=== PATIENT | male | born 1965 | race Caucasian/White ===

== ENCOUNTER → 2017-05-29 07:55 | Outpatient (CLI) | payer OTHER, SELFPAY ==
[2017-05-29 09:50] LABS: AST(SGOT) 18 U/L (15-37); Alanine Aminotransfer ALT/SGPT 30 U/L (16-61); Albumin, Serum 3.6 g/dL (3.2-5.0); Alkaline Phosphatase 88 U/L (45-117); Bilirubin, Direct 0.12 mg/dL (0.00-0.30); Cholesterol 136 mg/dL (200); Globulin 3.6 g/dL (2.2-4.2); High Density Lipoprotein 29 mg/dL; Protein, Total 7.2 g/dL (6.4-8.2); Triglycerides 119 mg/dL; Very Low Density Lipoprotein 24 mg/dL (5-40)
== END ==
PROVIDERS: Family Provider Family Medicine; PCP Family Medicine; Visit Provider Internal Medicine Cardiovascular Disease
DX: E78.5 Hyperlipidemia, unspecified (principal); Z79.899 Other long term (current) drug therapy
CPT/HCPCS: 36415; 80061; 80076

== ENCOUNTER → 2018-04-02 11:15 | Outpatient (CLI) | payer OTHER, SELFPAY ==
[2017-07-29 14:51] VITALS: BMI 37.1
[2018-04-02 11:48] LABS: Absolute Lymphocyte Count 1.88 X10^3/ul (0.83-4.51); Absolute Neutrophil Count 2.9 X10^3/uL (2.0-7.7); Basophil# 0.02 X10^3/uL; Basophil% 0.4 % (0-1); Eosinophils% 1.9 % (0-5); Hematocrit 45.1 % (40-54); Hemoglobin 15.2 g/dl (13.0-16.5); Lymphocyte # 1.88 X10^3/ul (4.0); Lymphocyte % 35.1 % (19-41); Mean Corp Hgb Conc 33.7 g/gl (32-36); Mean Corpuscular Hgb 29.1 pg (27.0-32.0); Mean Corpuscular Volume 86.2 fL (80-94); Monocyte# 0.42 X10^3/uL; Monocyte% 7.9 % (0-10); Neutrophil # 2.92 X10^3/uL (2.7-7.7); Neutrophil % 54.5 % (47-70); POSITIVE COUNT NO; POSITIVE DIFFERENTIAL NO; POSITIVE MORPHOLOGY NO; Platelet Count 208 K/mm3 (150-450); RBC Distribution Width SD 40.9 fl (35.1-43.9); Red Blood Count 5.23 M/mm3 (4.6-6.2); White Blood Count 5.4 K/mm3 (4.4-11.0)
[2018-04-02 12:16] LABS: ALB/GLOB Ratio 1.1 RATIO (0.9-2.4); AST(SGOT) 25 U/L (15-37); Alanine Aminotransfer ALT/SGPT 34 U/L (16-61); Albumin, Serum 3.7 g/dL (3.2-5.0); Alkaline Phosphatase 93 U/L (45-117); Anion Gap 7 (5-15); BUN 18 mg/dL (7-18); BUN/Creat Ratio 16.7 RATIO (10-20); Bilirubin, Direct 0.13 mg/dL (0.00-0.30); Calcium,Total 8.5 mg/dL (8.5-10.1); Chloride 108 mmol/L (98-107); Cholesterol 150 mg/dL (200); Creatinine, Serum 1.08 mg/dL (0.70-1.30); EST Glomerular Filtration Rate 77 mL/min (>60); Est Glom Filt Rate - Afr Amer 93 mL/min (>60); Globulin 3.4 g/dL (2.2-4.2); Glucose 90 mg/dL (74-106); High Density Lipoprotein 27 mg/dL; Protein, Total 7.1 g/dL (6.4-8.2); Sodium Level 144 mmol/L (136-145); Triglycerides 143 mg/dL; Very Low Density Lipoprotein 29 mg/dL (5-40)
== END ==
PROVIDERS: Family Provider Family Medicine; PCP Family Medicine; Referring Provider Internal Medicine Cardiovascular Disease; Visit Provider Internal Medicine Cardiovascular Disease
DX: L40.0 Psoriasis vulgaris (principal); E78.5 Hyperlipidemia, unspecified; I10 Essential (primary) hypertension; I25.10 Atherosclerotic heart disease of native coronary artery without angina pectoris; I26.99 Other pulmonary embolism without acute cor pulmonale; T81.718A Complication of other artery following a procedure, not elsewhere classified, initial encounter; Z79.899 Other long term (current) drug therapy; Z95.1 Presence of aortocoronary bypass graft
CPT/HCPCS: 36415; 80053; 80061; 82248; 85025

== ENCOUNTER 2018-06-12 05:54 | Emergency (ER) | payer OTHER, SELFPAY ==
[2018-04-30 10:13] VITALS: BMI 37.5
[2018-06-12 05:55] VITALS: BP 141/72; PULSE 62; RESP 20; TEMP 36.4; O2SAT 95; BMI 37.8
[2018-06-12 05:57] VITALS: RESP 20
--- NOTE | 2018-06-12 06:02 | CT_ITS ---
STUDY: CT ABDOMEN AND PELVIS WITHOUT CONTRAST REASON FOR EXAM: Male, 52 years old. Right flank pain RADIATION DOSAGE (If Supplied By Facility): CTDIvol = ( 21.08 ) mGy, DLP = ( 1259 ) mGycm TECHNIQUE: Transaxial images were obtained from the dome of the diaphragm to the symphysis pubis without oral contrast, and without intravenous contrast. Sagittal and coronal images were reconstructed. Individualized dose optimization techniques were used for this CT. COMPARISON: 11/26/2012 FINDINGS: The visualized lung bases are unremarkable. The visualized portions of the heart are within normal limits. Median sternotomy wires. Normal liver. Multiple gallstones. Normal spleen. Normal pancreas. Normal bilateral adrenal glands. Normal right kidney. Normal left kidney. Normal visualized stomach. Normal small intestine. There are multiple colonic diverticula consistent with diverticulosis. The appendix is visualized and appears normal. Normal abdominal aorta. There is an IVC filter in place. Normal retroperitoneum. Normal urinary bladder. Prostatomegaly and prostate calcifications. Normal abdominal wall. Normal osseous structures. CT/Abdomen/Pelvis without Cont IMPRESSION: No evidence of acute intestinal pathology or acute obstructive uropathy. Multiple gallstones. Electronically Signed: Ole Mahmood MD at 7:03 EST Tel , Service support ,
--- NOTE | 2018-06-12 06:02 | ED.VIS.GEN ---
History of Present Illness Chief Complaint: Flank Pain Informant: Patient Narrative: Patient stated that he woke 1 hour ago from sleep with right-sided flank pain. It has been constant. Moderate in severity. Sharp and discomfort. Nonradiating. No injury. He does not feel musculoskeletal and feels deep inside. He is never had this before. No home treatment. No urinary symptoms. No history of frequent urinary tract infections. Positive nausea without vomiting. No history of kidney stones but thinks he might have one. Past Medical History - Allergies and Home Meds Allergies/Adverse Reactions: Allergies heparin Adverse Reaction (Severe, Verified 06/12/18 05:57) Induced thrombocytopenia Penicillins Adverse Reaction (Unknown, Verified 06/12/18 05:57) Unknown Primary Care Physician: Ole Alexandra MD [Primary Care Provider] - Prior records reviewed: Yes Past Medical History: - - Hypertension, hyperlipidemia, postoperative pulmonary embolism, coronary artery disease status post bypass, hypertension Surgical History: - - CABG, IVC filter, hernia, thymectomy, vasectomy Lives: Spouse/ Significant Other Smoking Status: Never smoker Alcohol: None Drugs: None Review of Systems General: Denies: Chills, Fever, Sweats Eyes: Denies: Visual changes - bilaterally, Diplopia ENT: Denies: Rhinorrhea, Sore throat Cardiovascular: Denies: Chest pain, Palpitations Respiratory: Denies: Dyspnea, Cough, Dyspnea on exertion Gastrointestinal: Reports: Nausea. Denies: Abdominal pain, Vomiting, Diarrhea, Melena, Hematochezia Genitourinary: Denies: Dysuria, Hematuria, Frequency Musculoskeletal: Reports: Back pain - Right flank . Denies: Extremity Pain Skin: Denies: Rash, Wounds Neurological: Denies: Headache, Weakness, Numbness Physical Exam Vital Signs/Narrative: Vital Signs Temp Pulse Resp BP Pulse Ox 06/12/18 05:57 20 H 06/12/18 05:55 97.6 F L 62 20 H 141/72 H 95 Inital Vital Signs reviewed: Yes General: Well nourished, Well developed, No Acute Distress Head: Normocephalic, Atraumatic Eyes: Perrl, EOMI ENT: Moist mucous membranes, No rhinorrhea Neck: Supple, Nontender Cardiovascular: Regular rate, Regular rhythm, No murmurs Respiratory: No distress, CTA bilaterally, Chest nontender Abdomen: Soft, Nontender, Nondistended, Normal bowel sounds Back: Nontender, Normal Inspection. Negative for: CVA tenderness, Spinal tenderness Extremities: Nontender, No edema Skin: Normal color, No rash Neurological: Alert, Oriented x3, Cranial nerves II-XII grossly intact, Normal Strength, Normal Sensation Psychological: Normal affect, Normal Mood Diagnostic/Tx/Re-eval - Medical Decision Making IV established patient given fluids, Zofran, Toradol, morphine. Lab work and CT flank obtained CBC is normal. Electrolytes were normal except a calcium of 8.3. CT shows gallstones. Pain. No kidney stone noted. Urinalysis does show blood without infection. At this time on reevaluation the patient is pain-free resting comfortably. He may have passed a kidney stone. He has no pain at all over his gallbladder. His pain is much lower in his back. I do not think this is gallstone related however it is possible. He will follow-up with his family doctor and will be given a referral to a general surgeon. I do not think he needs to be admitted. I do not think he is a acute cholecystitis or intractable biliary colic. Is more likely to be a passed kidney stone. ED Disposition - Plan for ED Patient: Disposition: Home or Assisted Living Instructions: ED Stone Renal Passed, What are Gallstones? Prescriptions: Hydrocodone Bitart/Apap 5-325 [[place] 5MG-325MG] 1 - 2 tab PO Q4H PRN PRN 2 Days #10 tab PRN Reason: Pain Ondansetron [Zofran Odt] 4 mg PO Q8H PRN PRN #10 tab PRN Reason: Nausea Referrals: Ole Alexandra MD [Primary Care Provider] - Curtis Kate MD [STAFF PHYSICIAN] -
[2018-06-12] MEDS: Ondansetron 4 MG/2 ML Vial IV (06:06)
[2018-06-12] MEDS: 0.9% Normal Saline 1,000 ML 250 ML IV (06:06)
[2018-06-12] MEDS: Ketorolac 30 MG/ML Syringe IV (06:07)
[2018-06-12] MEDS: Morphine 4 MG/ML Syringe IV (06:09)
[2018-06-12 06:18] LABS: Absolute Lymphocyte Count 2.82 X10^3/ul (0.83-4.51); Absolute Neutrophil Count 4.9 X10^3/uL (2.0-7.7); Basophil# 0.04 X10^3/uL; Basophil% 0.5 % (0-1); Eosinophil# 0.19 X10^3/uL; Eosinophils% 2.2 % (0-5); Hematocrit 46.4 % (40-54); Hemoglobin 15.3 g/dl (13.0-16.5); Lymphocyte # 2.82 X10^3/ul (4.0); Lymphocyte % 32.3 % (19-41); Mean Corpuscular Hgb 28.8 pg (27.0-32.0); Mean Corpuscular Volume 87.4 fL (80-94); Mean Platelet Vol. 9.5 fl (6.2-12.0); Monocyte# 0.76 X10^3/uL; Monocyte% 8.7 % (0-10); Neutrophil # 4.89 X10^3/uL (2.7-7.7); Neutrophil % 56.1 % (47-70); Platelet Count 177 K/mm3 (150-450); RBC Distribution Width CV 12.9 % (11.6-14.6); RBC Distribution Width SD 41.2 fl (35.1-43.9); Red Blood Count 5.31 M/mm3 (4.6-6.2); White Blood Count 8.7 K/mm3 (4.4-11.0)
[2018-06-12 06:19] LABS: POSITIVE COUNT NO; POSITIVE DIFFERENTIAL NO; POSITIVE MORPHOLOGY NO
[2018-06-12 06:24] LABS: Anion Gap 8 (5-15); BUN 12 mg/dL (7-18); BUN/Creat Ratio 10.3 RATIO (10-20); Calcium,Total 8.3 mg/dL (8.5-10.1); Chloride 107 mmol/L (98-107); Creatinine, Serum 1.17 mg/dL (0.70-1.30); EST Glomerular Filtration Rate 70 mL/min (>60); Est Glom Filt Rate - Afr Amer 84 mL/min (>60); Estimated Creatinine Clearance 77.12 ml/min; Glucose 145 mg/dL (74-106); Potassium 3.9 mmol/L (3.5-5.1); Sodium Level 142 mmol/L (136-145)
[2018-06-12 06:54] LABS: White Blood Cells 0 SEEN /hpf (0-5)
[2018-06-12 06:58] LABS: Color, Urine Yellow (Yellow); Glucose, Dipstick Normal (Normal); Ketone-Dipstick 5 mg/dl (Negative); Leukocyte Esterase-Dipstick Negative /ul (Negative); Nitrite-Dipstick Negative (Negative); Occult Blood-Urine 250 /ul (Negative); Protein-Dipstick 30 mg/dl (Negative); Urine Clarity Sl. Cloudy (Clear); Urine Urobilinogen 1 mg/dl (Normal)
[2018-06-12 07:01] LABS: Urine Bilirubin Dipstick 1 mg/dL (Negative)
[2018-06-12 07:03] LABS: Bacteria RARE /hpf (None Seen); Mucous, Urine 2+ /hpf (<or=2+); Red Blood Cells-Urine 0-5 SEEN /hpf (0-5)
[2018-06-12 07:04] LABS: Squamous Epithelial Cells - UA 0-5 SEEN /hpf (0-5)
[2018-06-12 07:24] VITALS: PULSE 66; RESP 17; TEMP 36.7; O2SAT 97
== END 2018-06-12 07:26 | disposition home or self-care (01) ==
PROVIDERS: Emergency Provider Emergency Medicine; Family Provider Family Medicine; PCP Family Medicine
DX: R10.9 Unspecified abdominal pain (principal); I10 Essential (primary) hypertension; E78.5 Hyperlipidemia, unspecified; I25.10 Atherosclerotic heart disease of native coronary artery without angina pectoris; Z86.711 Personal history of pulmonary embolism; Z95.1 Presence of aortocoronary bypass graft; Z79.82 Long term (current) use of aspirin; Z79.899 Other long term (current) drug therapy
CPT/HCPCS: 74176; 80048; 81001; 85025; 96361; 96374; 96375; 99283; J7030; A4216; J2405

== ENCOUNTER → 2018-10-28 | Outpatient (CLI) | payer OTHER, SELFPAY ==
[2018-10-08 11:44] VITALS: BMI 37.8
[2018-10-28 09:19] LABS: AST(SGOT) 23 U/L (15-37); Alanine Aminotransfer ALT/SGPT 36 U/L (16-61); Albumin, Serum 3.5 g/dL (3.2-5.0); Alkaline Phosphatase 73 U/L (45-117); Cholesterol 120 mg/dL (200); Globulin 3.4 g/dL (2.2-4.2); High Density Lipoprotein 31 mg/dL; Protein, Total 6.9 g/dL (6.4-8.2); Triglycerides 104 mg/dL; Very Low Density Lipoprotein 21 mg/dL (5-40)
== END | disposition home or self-care (01) ==
LOC: LAB 07:45
PROVIDERS: Family Provider Family Medicine; PCP Family Medicine; Referring Provider Internal Medicine Cardiovascular Disease; Visit Provider Internal Medicine Cardiovascular Disease
DX: E78.5 Hyperlipidemia, unspecified (principal)
CPT/HCPCS: 36415; 80061; 80076

== ENCOUNTER → 2019-05-07 | Outpatient (CLI) | payer OTHER, SELFPAY ==
[2019-04-29 10:55] VITALS: BMI 38.2
[2019-05-07 08:43] LABS: Absolute Lymphocyte Count 2.16 X10^3/uL (0.83-4.51); Basophil# 0.04 X10^3/uL; Basophil% 0.7 % (0-1); Eosinophil# 0.25 X10^3/uL; Eosinophils% 4.1 % (0-5); Hemoglobin 14.8 g/dL (13.0-16.5); Lymphocyte # 2.16 X10^3/ul (4.0); Lymphocyte % 35.4 % (19-41); Mean Corp Hgb Conc 32.9 g/dL (32-36); Mean Corpuscular Hgb 28.5 pg (27.0-32.0); Mean Corpuscular Volume 86.5 fL (80-94); Mean Platelet Vol. 9.8 fl (6.2-12.0); Monocyte# 0.61 X10^3/uL; NRBC Flagged by Analyzer 0 % (0-5); Neutrophil # 3.02 X10^3/uL (2.7-7.7); Neutrophil % 49.5 % (47-70); Platelet Count 205 K/mm3 (150-450); RBC Distribution Width CV 12.4 % (11.6-14.6); RBC Distribution Width SD 39.1 fl (35.1-43.9); White Blood Count 6.1 K/mm3 (4.4-11.0)
[2019-05-07 09:09] LABS: ALB/GLOB Ratio 0.9 RATIO (0.9-2.4); AST(SGOT) 17 U/L (15-37); Alanine Aminotransfer ALT/SGPT 32 U/L (16-61); Albumin, Serum 3.3 g/dL (3.2-5.0); Alkaline Phosphatase 88 U/L (45-117); Anion Gap 2 (5-15); BUN 12 mg/dL (7-18); BUN/Creat Ratio 11.9 RATIO (10-20); Bilirubin, Direct 0.12 mg/dL (0.00-0.30); Calcium,Total 8.9 mg/dL (8.5-10.1); Chloride 106 mmol/L (98-107); Cholesterol 136 mg/dL (200); Creatinine, Serum 1.01 mg/dL (0.70-1.30); EST Glomerular Filtration Rate 82 mL/min (>60); Est Glom Filt Rate - Afr Amer 100 mL/min (>60); Globulin 3.6 g/dL (2.2-4.2); Glucose 124 mg/dL (74-106); High Density Lipoprotein 26 mg/dL; Potassium 4.2 mmol/L (3.5-5.1); Protein, Total 6.9 g/dL (6.4-8.2); Sodium Level 140 mmol/L (136-145); Triglycerides 151 mg/dL; Very Low Density Lipoprotein 30 mg/dL (5-40)
== END | disposition home or self-care (01) ==
LOC: LAB 07:54
PROVIDERS: PCP Family Medicine; Referring Provider Internal Medicine Cardiovascular Disease; Visit Provider Internal Medicine Cardiovascular Disease
DX: E78.5 Hyperlipidemia, unspecified (principal); L40.0 Psoriasis vulgaris; L82.1 Other seborrheic keratosis
CPT/HCPCS: 36415; 80053; 80061; 82248; 85025

== ENCOUNTER → 2019-11-18 | Outpatient (CLI) | payer OTHER, SELFPAY ==
[2019-11-09 10:27] VITALS: BMI 36.8
--- NOTE | 2019-11-18 09:22 | STRESSREP ---
Stress Test Report Date: 11-18-2019 Procedure: Exercise tolerance test/imaging study Indications: Shortness of breath/dyspnea on exertion; CAD status post CABG Consent: Per the patient Procedure: The patient exercised on a Shaka protocol for 9 minutes completing Stage III achieving a peak heart rate of 148 bpm (88 % predicted maximal heart rate) with a peak blood pressure 178/70 mmHg and a peak MET capacity of 10 METs. The baseline ECG demonstrated normal sinus rhythm. The peak exercise ECG demonstrated [id number] ST segment variability with approximately 0.5 to 1.[address] segment depression in leads II, III, aVF, and V4 through V6 with gradual resolution towards baseline in recovery. There was a rare PAC during exercise and a rare PVC during recovery. The functional capacity was considered good. There was no complaint of chest discomfort during exercise or recovery. The examination was discontinued secondary to dyspnea. Impression: 1. Technically adequate (percent predicted maximal heart rate greater than 85%) exercise tolerance test 2. Peak exercise ECG with [id number] ST segment variability with approximately 0.5 to 1.[address] segment depression in leads II, III, aVF, and V4 through V6 with gradual resolution towards baseline in recovery 3. There was a rare PAC during exercise and a rare PVC during recovery 4. Nuclear images pending Myocardial perfusion imaging study: Technique: The patient was injected with 14.6 mCi of technetium 99m Cardiolite and subsequently rest SPECT Cardiolite nuclear imaging was obtained in the horizontal long, vertical long, and short axis views. The patient exercised on a Shaka protocol for 9 minutes completing Stage III achieving a peak heart rate of 148 bpm (88 % predicted maximal heart rate) with a peak blood pressure 178/70 mmHg and a peak MET capacity of 10 METs. The patient was injected with 33.5 mCi of technetium 99m Cardiolite and subsequently stress SPECT Cardiolite nuclear imaging was obtained in the horizontal long, vertical long, and short axis views. A gated Cardiolite study at peak stress was obtained. Interpretation: Rest and stress SPECT Cardiolite nuclear imaging status post realignment, normalization, and attenuation correction, demonstrates at rest of relative uniform tracer uptake status post stress a small area of diminished tracer uptake in the distal anterior segments. There is end systolic thickening and brightening. The gated Cardiolite study demonstrates myocardial thickening and inward wall motion. The reported LVEF is 66 %. Impression: 1. Rest and stress SPECT Cardiolite nuclear imaging demonstrate demonstrate myocardial perfusion changes appearing compatible with an area of stress-induced myocardial ischemia involving portions of the distal anterior segments, however, an element of shifting soft tissue attenuation/artifact cannot necessarily be excluded. 2. The gated Cardiolite study reports an LVEF of 66 %. This note was generated with [employer]stream[employer] software. It may contain incorrect words, spelling, and punctuation that were not noted in checking the note before signing.
== END | disposition home or self-care (01) ==
LOC: CVS 06:16
PROVIDERS: PCP Family Medicine; Referring Provider Physician Assistant Medical; Visit Provider Physician Assistant Medical
DX: I25.10 Atherosclerotic heart disease of native coronary artery without angina pectoris (principal); I10 Essential (primary) hypertension; E78.5 Hyperlipidemia, unspecified
CPT/HCPCS: 78452; 93017; A9500; A4216

== ENCOUNTER 2019-12-01 08:54 | Day surgery (SDC) | payer OTHER, SELFPAY ==
[2019-11-09 10:27] VITALS: BMI 36.8
[2019-11-23 08:31] LABS: Absolute Lymphocyte Count 1.41 X10^3/uL (0.83-4.51); Absolute Neutrophil Count 2.7 X10^3/uL (2.0-7.7); Basophil# 0.03 X10^3/uL; Basophil% 0.6 % (0-1); Eosinophil# 0.12 X10^3/uL; Eosinophils% 2.5 % (0-5); Hematocrit 43.6 % (40-54); Hemoglobin 14.1 g/dL (13.0-16.5); Lymphocyte # 1.41 X10^3/ul (4.0); Lymphocyte % 29.5 % (19-41); Mean Corp Hgb Conc 32.3 g/dL (32-36); Mean Corpuscular Hgb 28.1 pg (27.0-32.0); Mean Corpuscular Volume 86.9 fL (80-94); Mean Platelet Vol. 10.1 fl (6.2-12.0); Monocyte# 0.54 X10^3/uL; Monocyte% 11.3 % (0-10); NRBC Flagged by Analyzer 0 % (0-5); Neutrophil # 2.67 X10^3/uL (2.7-7.7); Neutrophil % 55.9 % (47-70); Platelet Count 200 K/mm3 (150-450); RBC Distribution Width CV 12.8 % (11.6-14.6); RBC Distribution Width SD 40.2 fl (35.1-43.9); Red Blood Count 5.02 M/mm3 (4.6-6.2); White Blood Count 4.8 K/mm3 (4.4-11.0)
[2019-11-23 08:52] LABS: Anion Gap 6 (5-15); BUN 14 mg/dL (7-18); BUN/Creat Ratio 14.8 RATIO (10-20); Calcium,Total 8.4 mg/dL (8.5-10.1); Chloride 106 mmol/L (98-107); Creatinine, Serum 0.95 mg/dL (0.70-1.30); EST Glomerular Filtration Rate 88 mL/min (>60); Est Glom Filt Rate - Afr Amer 107 mL/min (>60); Glucose 117 mg/dL (74-106); Potassium 4.1 mmol/L (3.5-5.1); Prothrombin Time (Protime)PT. 12.7 SECONDS (11.7-14.9); Sodium Level 140 mmol/L (136-145)
[2019-11-23 08:59] LABS: AST(SGOT) 19 U/L (15-37); Alanine Aminotransfer ALT/SGPT 29 U/L (16-61); Albumin, Serum 3.5 g/dL (3.2-5.0); Alkaline Phosphatase 74 U/L (45-117); Bilirubin, Direct 0.13 mg/dL (0.00-0.30); Cholesterol 123 mg/dL (200); Globulin 3.5 g/dL (2.2-4.2); High Density Lipoprotein 26 mg/dL; Partial Thromboplast Time 24.4 Seconds (24.1-36.2); Triglycerides 102 mg/dL; Very Low Density Lipoprotein 20 mg/dL (5-40)
--- NOTE | 2019-11-24 07:59 | RAD_ITS ---
STUDY: X-RAY CHEST REASON FOR EXAM: Male, 54 years old. Abnormal stress test. TECHNIQUE: Frontal and lateral views of the chest COMPARISON: 12/06/14 FINDINGS: The lungs are clear. There are no pleural effusions. There is no pneumothorax. The heart is normal in size. Again noted are sternotomy wires. The visualized osseous structures are within normal limits. RAD/Chest PA and Lateral IMPRESSION: No acute thoracic pathology. Electronically Signed: Brooks Starr, at 17:02 EDT Tel , Service support ,
[2019-11-30 08:55] VITALS: BMI 36.8
--- NOTE | 2019-11-30 18:38 | PCM.HP.BLA ---
Problem List (1) Abnormal stress test Status: Acute (2) Atherosclerotic heart disease of [place] coronary artery without angina pectoris Status: Chronic Qualifiers: Comment: CABG x2- SANDOVAL to LAD, OPHELIA to RCA 01/18/10 (3) Aortocoronary bypass status Status: Chronic Comment: CABG x2- SANDOVAL to LAD, OPHELIA to RCA 01/18/10 (4) Hyperlipidemia Status: Chronic Qualifiers: (5) Essential hypertension Status: Chronic History and Physical Date of Admission: 12/01/19 [facility] [address] [place] [address] OFFICE VISIT Date of Service: 11/09/19 MR#: [id number] Acct: [id number] Name: AMADO ROQUE Rep #: [id number] : 1965 Provider: PRITI Aguirre Age/Sex: 54/M Location: [facility] [place] Status: Signed HPI HPI History of Present Illness Details: This is a 54-year-old gentleman that presents here today for a cardiovascular follow-up. He has a history of coronary artery disease with bypass surgery in 2009. He had a SANDOVAL to LAD, OPHELIA to RCA. He also has a history of PE, hypertension and hyperlipidemia. From a cardiac standpoint, patient is doing well. He does not have any chest discomfort/heaviness/tightness. His exercise tolerance is stable for his age. He does not have any worsening symptoms of shortness of breath. He denies any PND. He does not have any orthopnea. He does not have any symptoms of congestive heart failure. He does not have any palpitations that he is aware of. He does not have any lightheadedness or dizziness. He does not have any near-syncope or syncope. He does not have any lower extremity edema. He does not have any symptoms of claudication. He has lost weight since he has been working from home. He will be returning to work next week. Intake Vital Signs 11/09/19 Height 5 ft 10 in 11/09/19 Weight: 257 lb 11/09/19 BMI 36.8 11/09/19 BP 123/74 H 11/09/19 Blood Pressure Location Lt brachial 11/09/19 Position Sitting 11/09/19 Respiration 18 11/09/19 Pulse 60 11/09/19 Pulse Source Monitor 11/09/19 Pulse Oximetry (%) 97 Intake Visit Reasons: 6 M FU Shopping Investigator Required: No Is patient in pain?: No Allergies heparin Adverse Reaction (Severe, Verified 11/09/19 10:27) Induced thrombocytopenia Penicillins Adverse Reaction (Unknown, Verified 11/09/19 10:27) Unknown Medications aspirin 325 mg tablet,delayed release 325 mg PO QDAY 06/17/17 [History Confirmed 11/09/19] bupropion HCl 150 mg tablet,12 hr sustained-release 150 mg PO QDAY 06/17/17 [History Confirmed 11/09/19] fluticasone propionate 50 mcg/actuation nasal spray,suspension 1 spray INTRANASAL QDAY PRN 06/17/17 [History Confirmed 11/09/19] loratadine 10 mg tablet 10 mg PO QDAY 06/17/17 [History Confirmed 11/09/19] sulfasalazine 500 mg tablet 500 mg PO TID tab 06/17/17 [History Confirmed 11/09/19] nitroglycerin 0.4 mg sublingual tablet 0.4 mg SUBLINGUAL Q5M PRN #25 tab 08/20/18 [Rx Confirmed 11/09/19] ezetimibe 10 mg tablet 10 mg PO QDAY #90 tab 01/26/19 [Rx Confirmed 11/09/19] rosuvastatin 40 mg tablet 40 mg PO QDAY #90 tab 01/26/19 [Rx Confirmed 11/09/19] calcipotriene-betamethasone 0.005 %-0.064 % topical ointment 1 applic TOPICAL DAILY PRN 04/29/19 [History Confirmed 11/09/19] lisinopril 2.5 mg tablet 2.5 mg PO QDAY #90 tab 08/24/19 [Rx Confirmed 11/09/19] metoprolol succinate 25 mg tablet,extended release 24 hr 25 mg PO DAILY #90 tab 09/07/19 [Rx Confirmed 11/09/19] [facility] Medical History Essential hypertension (Chronic) Hyperlipidemia (Chronic) Pulmonary embolism and infarction, iatrogenic (Acute) Long-term use of high-risk medication (Acute) Atherosclerotic heart disease of [place] coronary artery without angina pectoris (Chronic) GERD (gastroesophageal reflux disease) (Acute) History of DVT (deep vein thrombosis) (Acute) Psoriasis (Acute) MAC (obstructive sleep apnea) (Chronic) Hypertension (Inactive) Surgical History Aortocoronary bypass status (Chronic ~01/18/10) History of vasectomy (Chronic) History of hernia repair (Resolved) History of thymectomy (Resolved) Social History (Updated 11/09/19 @ 11:00 by PRITI Rahman) Smoking Status: Never smoker alcohol intake: never ROS Const Const: Negative for fatigue, weakness, fever(s) or headache(s) Eyes Eyes: Negative for blind spots, loss of peripheral vision or transient loss of vision ENT ENT: Negative for headache(s), dizziness, tinnitus or Nosebleed/epistaxis Cardio Chest Pain: No Palpitations: No Edema: None Muscle aches with walking: None Resp Respiratory: Negative for SOB with activity, SOB at rest, SOB orthopnea\SOB lying down or Cough GI GI: Negative nausea, vomiting, heartburn or vomiting blood/hematemesis : Negative for hematuria Musc Musc: Negative for muscle aches/ myalgia Neuro Neuro: Negative for dizziness, lightheadedness, near syncope, syncope, orthostatic symptoms, headache(s) or weakness Andre Hematologic/Lymphatic: Negative for easy bleeding Endo Endo: Negative for fatigue Cardiology Exam Const Appearance: cooperative, healthy appearing, comfortable, no acute distress, well developed and well groomed Nutritional Appearance: average body habitus and well nourished Orientation: alert, awake and oriented x3 Head Head: normal to inspection and normocephalic Ears: hearing grossly normal bilaterally Nose: external nose normal Mouth: oral mucosae normal Teeth and gingiva: fair dentition Eyes Eyelids: eyelids normal Conjunctivae: conjunctivae normal Pupils: PERRL EOM: EOM intact bilaterally Neck Neck: normal visual inspection and full ROM Carotids: normal carotid upstroke Chest Chest inspection: normal inspection of the chest, symmetric chest movement and normal respiratory effort Auscultation: Bilateral: Clear to Auscultation Cardio Palpation: normal PMI Rate: regular rate Rhythm: regular rhythm Heart sounds: S1 normal and S2 normal GI GI: normal to inspection, soft and bowel sounds present Neuro General: alert, awake, oriented x3, gait normal, moves all extremities, no focal sensory deficit and no focal motor deficits Skin Skin: no rashes or lesions noted Extremities Pulses: Normal: Right Radial Pulse, Left Radial Pulse Lower Extremity Edema: None: Bilateral Psych Psychological: normal affect Assessment & Plan 1. Atherosclerosis of [place] coronary artery of [place] heart without angina pectoris I25.10 CABG x2- SANDOVAL to LAD, OPHELIA to RCA 01/18/10 Plan Stable, from a cardiac standpoint patient does not have any symptoms of angina. We recommend that they continue with current aggressive medical management and risk factor modification. It has been greater than 5 years since he had a stress test, would like to obtain to evaluate stability of his CAD Orders Orders: Nuclear Stress Test - Treadmil Today 2. Essential hypertension I10 Plan Blood pressure is well controlled on current medications, we do not recommend any changes at this time. Orders Orders: Nuclear Stress Test - Treadmil Today 3. Hyperlipidemia, unspecified hyperlipidemia type E78.5 Plan Recent lipids were reviewed. He is due to have these checked again in the near future. They are controlled on his current high intensity statin. Will not make any adjustments. Orders Orders: Nuclear Stress Test - Treadmil Today Plan Detail Follow Up 9 Months (PFM) Coding Level of Care Code Off vis,est,level 3 Diagnoses Atherosclerosis of [place] coronary artery of [place] heart without angina pectoris I25.10 ??[place] vs. transplanted heart: [place] heart Essential hypertension I10 Hyperlipidemia, unspecified hyperlipidemia type E78.5 ??Hyperlipidemia type: unspecified Coding Level of Care Code Off vis,est,level 3 Diagnoses Atherosclerosis of [place] coronary artery of [place] heart without angina pectoris I25.10 ??[place] vs. transplanted heart: [place] heart Essential hypertension I10 Hyperlipidemia, unspecified hyperlipidemia type E78.5 ??Hyperlipidemia type: unspecified Supplemental Info Supplemental Information DATE OF SERVICE: 11/16/2014 EXERCISE TOLERANCE TEST: The patient exercised on a Shaka protocol for 12 minutes completing stage 4 achieving a peak heart rate of 164 beats per minute (95% predicted maximum heart rate) and a peak blood pressure of 170/64 mmHg and a peak MET capacity of 13 METS. The baseline ECG demonstrated normal sinus rhythm. The peak exercise ECG demonstrated [id number] ST-segment variability with approximately 0.5 mm of downsloping/horizontal ST-segment depression in leads II, III, aVF, and approximately 0.5 to 1.[address]-segment depression in leads V3 through V6 with resolution towards baseline beginning less than 1 minute in recovery. There were no cardiac dysrhythmias pretest, during exercise, or recovery. The functional capacity was considered excellent. The patient had no complaint of chest discomfort during exercise or recovery. The examination was discontinued secondary to dyspnea. IMPRESSION: 1. Technically adequate (percent predicted maximum heart rate greater than 85%) exercise tolerance test. 2. Peak exercise ECG with [id number] ST-segment variability with approximately 0.5 mm of downsloping/horizontal ST-segment depression in leads II, III, aVF, and approximately 0.5 to 1.[address]-segment depression in leads V3 through V6 with resolution towards baseline beginning less than 1 minute in recovery. 3. Nuclear images pending. MYOCARDIAL PERFUSION IMAGING STUDY: TECHNIQUE: The patient was injected with 14.7 mCi of Tc99m Cardiolite and subsequently rest SPECT Cardiolite nuclear imaging was obtained in the horizontal long, vertical long and short axes views. The patient exercised on a Shaka protocol for 12 minutes achieving a peak heart rate of 164 beats per minute (95% predicted maximum heart rate) and a peak blood pressure of 170/64 mmHg and a peak MET capacity of 13 METS. The patient was injected with 44.1 mCi of Tc99m Cardiolite and subsequently stress SPECT Cardiolite nuclear imaging was obtained in the horizontal long, vertical long and short axes views. A gated Cardiolite study at peak stress was obtained. INTERPRETATION: Rest and stress SPECT Cardiolite nuclear imaging, status post realignment and normalization, demonstrate at rest areas of extracardiac/hepatic and gastrointestinal tracer uptake near the inferior segments. Both images demonstrate areas of diminished tracer uptake in portions of the basal inferoseptal and basal inferior segments, which appear to be more prominent at rest as opposed to stress. At rest, this proceeds towards the mid inferior segment. There was also a small area of subtle decreased tracer uptake, both at rest and stress, in portions of the basal anterior segment. There are similar type changes on the resting and stress polar map images. There appears to be end systolic thickening and brightening. The gated Cardiolite study demonstrates myocardial thickening and inward wall motion. The reported LVEF is 64%. The aforementioned findings appear compatible with shifting soft tissue attenuation/artifact and/or gastrointestinal tracer uptake/detraction involving portions of the inferior segments being more prominent at rest as opposed to stress as well as potentially an area of soft tissue attenuation/artifact involving a small area of the basal anterior segment, although a small area of previous myocardial injury/infarction cannot necessarily be excluded. There are no myocardial perfusion changes considered diagnostic for associated stress-induced myocardial ischemia. IMPRESSION: 1. Rest and stress SPECT Cardiolite nuclear imaging, status post realignment and normalization, demonstrate myocardial perfusion changes involving portions of the basal inferoseptal, basal inferior segment extending to the mid inferior segments at rest, which appear to improve and/or normalize following stress being compatible with an element of shifting soft tissue attenuation/artifact and/or gastrointestinal tracer uptake/detraction as well as demonstrating a small area of subtle decreased tracer uptake in the basal anterior segments potentially compatible with soft tissue attenuation/artifact although an area of previous myocardial injury/infarction involving a small area of the basal anterior segments cannot necessarily be excluded. 2. There are no myocardial perfusion changes considered diagnostic for stress-induced myocardial ischemia. 3. The gated Cardiolite study reports an LVEF of 64%. Labs LDL Cholesterol 80 mg/dL (0-130) 05/07/19 HDL Cholesterol 26 mg/dL (40-) L 05/07/19 Triglycerides 151 mg/dL (-199) 05/07/19 VLDL Cholesterol 30 mg/dL (5-40) 05/07/19 11/09/19 1100 <Electronically signed by Eve MARCOS> Date Eve MARCOS Cosigner Signature: Date (if applicable) CC: Dr. Ole Alexandra MD ~ I have examined the patient the following changes are noted: The patient has subsequently undergone additional evaluation with an exercise tolerance test/imaging study. The results are as noted. Stress Test Report Date: 11-18-2019 Procedure: Exercise tolerance test/imaging study Indications: Shortness of breath/dyspnea on exertion; CAD status post CABG Consent: Per the patient Procedure: The patient exercised on a Shaka protocol for 9 minutes completing Stage III achieving a peak heart rate of 148 bpm (88 % predicted maximal heart rate) with a peak blood pressure 178/70 mmHg and a peak MET capacity of 10 METs. The baseline ECG demonstrated normal sinus rhythm. The peak exercise ECG demonstrated [id number] ST segment variability with approximately 0.5 to 1.[address] segment depression in leads II, III, aVF, and V4 through V6 with gradual resolution towards baseline in recovery. There was a rare PAC during exercise and a rare PVC during recovery. The functional capacity was considered good. There was no complaint of chest discomfort during exercise or recovery. The examination was discontinued secondary to dyspnea. Impression: 1. Technically adequate (percent predicted maximal heart rate greater than 85%) exercise tolerance test 2. Peak exercise ECG with [id number] ST segment variability with approximately 0.5 to 1.[address] segment depression in leads II, III, aVF, and V4 through V6 with gradual resolution towards baseline in recovery 3. There was a rare PAC during exercise and a rare PVC during recovery 4. Nuclear images pending Myocardial perfusion imaging study: Technique: The patient was injected with 14.6 mCi of technetium 99m Cardiolite and subsequently rest SPECT Cardiolite nuclear imaging was obtained in the horizontal long, vertical long, and short axis views. The patient exercised on a Shaka protocol for 9 minutes completing Stage III achieving a peak heart rate of 148 bpm (88 % predicted maximal heart rate) with a peak blood pressure 178/70 mmHg and a peak MET capacity of 10 METs. The patient was injected with 33.5 mCi of technetium 99m Cardiolite and subsequently stress SPECT Cardiolite nuclear imaging was obtained in the horizontal long, vertical long, and short axis views. A gated Cardiolite study at peak stress was obtained. Interpretation: Rest and stress SPECT Cardiolite nuclear imaging status post realignment, normalization, and attenuation correction, demonstrates at rest of relative uniform tracer uptake status post stress a small area of diminished tracer uptake in the distal anterior segments. There is end systolic thickening and brightening. The gated Cardiolite study demonstrates myocardial thickening and inward wall motion. The reported LVEF is 66 %. Impression: 1. Rest and stress SPECT Cardiolite nuclear imaging demonstrate demonstrate myocardial perfusion changes appearing compatible with an area of stress-induced myocardial ischemia involving portions of the distal anterior segments, however, an element of shifting soft tissue attenuation/artifact cannot necessarily be excluded. 2. The gated Cardiolite study reports an LVEF of 66 %. This note was generated with [employer] dictation software. It may contain incorrect words, spelling, and punctuation that were not noted in checking the note before signing. 11/18/19932 <Electronically signed by Alfred Felipe MD> Date Alfred Felipe MD CC: PRITI Aguirre; Dr. 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 It was recommended the patient be considered for further evaluation with diagnostic cardiac catheterization. The procedure and risks have been discussed with the patient. He was agreeable to this approach. Procedure Criteria Procedure Type: Elective COVID Risk Discussion: The surgeon/proceduralist and patient have discussed in detail the risk of exposure to and/or potential harm posed by the COVID-19 virus with having a surgery/procedure at this time versus the risk of delaying the surgery/procedure. It is not possible to know either the risk of delaying the surgery or procedure or chance of getting an infection with perfect accuracy, but a joint decision was made between the patient and the surgeon/proceduralist to proceed at this time with the scheduled surgery/procedure as indicated on the consent form.
--- NOTE | 2019-12-02 00:32 | CL.D_ITS ---
Patient Name: AMADO ROQUE Study Date: 12/01/2019 Performing: Alfred Felipe MD Ht: 70 inches 178 cm : 1965 Wt: 258.3 lbs 117 kg Age: 54 Gender: male BSA: 2.33 PROCEDURE(S) PERFORMED [id number]/COR/LV/CABG CLINICAL PROFILE AND INDICATIONS Indications: Suspected CAD Heart Failure: None Stress/Imaging Date: 11/18/2019Stress Test with SPECT MPI: Positive Angina Classification Anginal Classification w/in 2 Weeks: Anginal Equivalent Dyspnea CAD Presentations: Other: dyspnea on exertion CONCLUSIONS Elevated Left Ventricular End Diastolic Pressure Normal LV size, wall motion,and systolic function LVEF: by LV gram 55 % [place] Multivessel CAD SANDOVAL to LAD: patent OPHELIA to RCA: patent RECOMMENDATIONS Risk factor modification Medical therapy DESCRIPTION OF PROCEDURE The patient arrived to the procedure lab. The risks and benefits of the procedure as well as a full d escription of our services here and current unavailability of surgical backup were fully explained to the patient and/or their significant other prior to the catheterization. The Timeout was completed, verifying the correct patient and procedure. The patient's procedural site was prepped and draped in the usual fashion. Local anesthetic was given subcutaneously to right groin region with Lidocaine 2%. Using a modified Seldinger technique, arterial access was obtained via the right femoral artery, a 4 Fr sheath was inserted Left Coronary Artery selective angiography was performed in multiple views us ing a 4 Fr. JL5 catheter. Right Coronary Artery selective angiography was then performed in multiple views using a 4 Fr. 3DRC catheter. Right internal mammary artery graft to the RCA selective angiograp hy was performed in multiple views using a 4 Fr. IM catheter. Left internal mammary artery graft to the LAD selective angiography was performed in multiple views using a 4 Fr. IM catheter. Lef t Ventriculography was performed in DRUMMOND projection using a 4 Fr. Pigtail catheter. LV to AO pullback pressures were then recorded.The arterial sheath was pulled and manual compression applied until hemo stasis is achieved. CORONARY ANGIOGRAPHY DOMINANCE: Right Dominant LEFT HEART ASSESSMENT Left Ventricular Ejection Fraction: by LV Gram 55 % Normal LV wall motion Elevated Left Ventricular End Diastolic Pressure LVEDP: 34 mmHg LEFT MAIN: Angiographically normal LEFT ANTERIOR DESCENDING ARTERY: OSTIAL LAD: Mild calcification PROX LAD: Mild calcification, Mild luminal irregularities, eccentric: 10 - 25 % Stenosis MID LAD: is occluded, fills from the SANDOVAL graft with no angiographically significant appearing diseas e distal to the graft attachment CIRCUMFLEX ARTERY: OSTIAL CIRC: Mild calcification RIGHT CORONARY ARTERY: Mild luminal irregularities MID RCA: eccentric: 85 % Stenosis GRAFTS: SANDOVAL graft to the Mid LAD is patent OPHELIA graft to the Mid RCA is patent AORTIC ROOT: Angiographically normal Angiographically normal COMPLICATIONS No Complications PROCEDURE MEDICATIONS Versed 1 mg IV Oxygen: 2 L/min via nasal cannula SUMMARY OF HEMODYNAMIC DATA Time AIR REST ECG 09:16:07 AO 127/85 (106) SA 11:03:58 LV 121/6, 35 11:38:42 LV 126/3, 34 11:38:49 LV 126/-2, 32 11:39:46 LVp 127/-1, 32 11:39:51 AOp 117/74 (93) 11:39:56 Signed By Alfred Felipe MD On 12/01/2019 20:31:01 Alfred Felipe MD
== END 2019-12-01 16:10 | disposition home or self-care (01) ==
LOC: CLSP 08:58
PROVIDERS: Physician Assistant Medical; PCP Family Medicine; Referring Provider Internal Medicine Cardiovascular Disease; Visit Provider Internal Medicine Cardiovascular Disease
DX: I25.10 Atherosclerotic heart disease of native coronary artery without angina pectoris (principal); I10 Essential (primary) hypertension; E78.5 Hyperlipidemia, unspecified; R94.39 Abnormal result of other cardiovascular function study; K21.9 Gastro-esophageal reflux disease without esophagitis; Z95.1 Presence of aortocoronary bypass graft; Z86.711 Personal history of pulmonary embolism; Z79.82 Long term (current) use of aspirin; Z79.899 Other long term (current) drug therapy; Z86.718 Personal history of other venous thrombosis and embolism
CPT/HCPCS: 36415; 71046; 80048; 80061; 80076; 85025; 85610; 85730; 93459; 99152; 99153; J7040; Q9967; C1769; C1894

== ENCOUNTER 2019-12-02 22:32 | Emergency (ER) | payer OTHER, SELFPAY ==
[2019-11-30 08:55] VITALS: BMI 36.8
[2019-12-02 22:33] VITALS: BP 152/87; PULSE 62; RESP 16; TEMP 36.4; O2SAT 93; BMI 42.7
--- NOTE | 2019-12-02 22:44 | ED.VIS.GEN ---
History of Present Illness Chief Complaint: Wound Informant: Patient, Family Onset: Today Narrative: Patient presents for wound check right groin. Status post diagnostic heart catheterization by Dr. Felipe yesterday at noon. He had a abnormal stress test initially. There is no intervention. Reports when he took the dressing off this morning there is no bruising however later that evening noted some bruising. Denies any lightheaded symptoms, denies any leg weakness or paresthesias. There is been no bleeding from the wound. He reports he was instructed take extra aspirin prior to this procedure, his Plavix was stopped this morning through instructions after heart catheterization due to not requiring it. He has history of bypass in the past. No other symptoms. Prior similar symptoms: No Past Medical History - Allergies and Home Meds Allergies/Adverse Reactions: Allergies heparin Adverse Reaction (Severe, Verified 11/09/19 10:27) Induced thrombocytopenia Penicillins Adverse Reaction (Unknown, Verified 11/09/19 10:27) Unknown Primary Care Physician: Ole Alexandra MD [Primary Care Provider] - Past Medical History: - - Hypertension, hyperlipidemia, GERD, coronary disease, PE and DVT Surgical History: - - CABG, IVC filter, hernia, thymectomy, vasectomy Smoking Status: Never smoker Review of Systems General: Denies: Chills, Fever, Sweats Eyes: Denies: Visual changes - bilaterally, Diplopia ENT: Denies: Rhinorrhea, Sore throat Cardiovascular: Denies: Chest pain, Palpitations Respiratory: Denies: Dyspnea, Cough, Dyspnea on exertion Gastrointestinal: Denies: Abdominal pain, Nausea, Vomiting, Diarrhea, Melena, Hematochezia Genitourinary: Denies: Dysuria, Hematuria, Frequency Musculoskeletal: Denies: Back pain, Extremity Pain Skin: Reports: - - Bruising. Denies: Rash, Wounds Neurological: Denies: Headache, Weakness, Numbness Physical Exam Vital Signs/Narrative: Vital Signs Temp Pulse Resp BP Pulse Ox 12/02/19 22:33 97.5 F L 62 16 152/87 H 93 Inital Vital Signs reviewed: Yes General: Well nourished, Well developed, No Acute Distress Head: Normocephalic, Atraumatic Eyes: Perrl, EOMI ENT: Moist mucous membranes, No rhinorrhea Neck: Supple, Nontender Cardiovascular: Regular rate, Regular rhythm, No murmurs Respiratory: No distress, CTA bilaterally, Chest nontender Abdomen: Soft, Nontender, Nondistended, Normal bowel sounds Back: Nontender, Normal Inspection Extremities: Nontender, No edema Skin: - - Right groin: Puncture wound noted with no erythema or drainage, there was slight ecchymosis lateral up the inguinal canal, there was no ecchymosis down the leg. Nontender around the site. Pulses intact distal extremity. Neurological: Alert, Oriented x3, Cranial nerves II-XII grossly intact, Normal Strength, Normal Sensation Psychological: Normal affect, Normal Mood Diagnostic/Tx/Re-eval - Medical Decision Making Patient vital signs stable. Patient developed ecchymosis with slight noted this evening. Status post heart catheterization, discussed with patient likely natural process from procedure. This is not extensive at this time. Discussed monitoring symptoms. Signs and symptom discussed to return. All questions were answered. ED Disposition - Plan for ED Patient: Disposition: Home or Assisted Living Diagnosis: Visit for wound check, Status post left heart catheterization Instructions: ED Wound Care Referrals: Ole Alexandra MD [Primary Care Provider] - Alfred Felipe MD [STAFF PHYSICIAN] - 1 Week if not improving
== END 2019-12-02 22:59 | disposition home or self-care (01) ==
LOC: ED 22:56
PROVIDERS: Emergency Provider Emergency Medicine; PCP Family Medicine
DX: Z98.890 Other specified postprocedural states (principal); Z48.00 Encounter for change or removal of nonsurgical wound dressing; I10 Essential (primary) hypertension; K21.9 Gastro-esophageal reflux disease without esophagitis; E78.5 Hyperlipidemia, unspecified; Z95.1 Presence of aortocoronary bypass graft; Z86.718 Personal history of other venous thrombosis and embolism; Z86.711 Personal history of pulmonary embolism; Z79.899 Other long term (current) drug therapy
CPT/HCPCS: 99281; 99282

== ENCOUNTER → 2020-03-30 07:29 | Outpatient (CLI) | payer OTHER, SELFPAY ==
[2020-03-30 08:09] LABS: Absolute Lymphocyte Count 1.75 X10^3/uL (0.83-4.51); Absolute Neutrophil Count 2.9 X10^3/uL (2.0-7.7); Basophil# 0.06 X10^3/uL; Basophil% 1.1 % (0-1); Eosinophil# 0.13 X10^3/uL; Eosinophils% 2.4 % (0-5); Hematocrit 47.1 % (40-54); Hemoglobin 15.7 g/dL (13.0-16.5); Lymphocyte # 1.75 X10^3/ul (4.0); Lymphocyte % 32.6 % (19-41); Mean Corp Hgb Conc 33.3 g/dL (32-36); Mean Corpuscular Hgb 28.6 pg (27.0-32.0); Mean Corpuscular Volume 85.8 fL (80-94); Monocyte% 9.3 % (0-10); NRBC Flagged by Analyzer 0 % (0-5); Neutrophil # 2.92 X10^3/uL (2.7-7.7); Neutrophil % 54.4 % (47-70); Platelet Count 208 K/mm3 (150-450); RBC Distribution Width CV 12.3 % (11.6-14.6); RBC Distribution Width SD 38.5 fl (35.1-43.9); Red Blood Count 5.49 M/mm3 (4.6-6.2); White Blood Count 5.4 K/mm3 (4.4-11.0)
[2020-03-30 08:27] LABS: AST(SGOT) 21 U/L (15-37); Alanine Aminotransfer ALT/SGPT 39 U/L (16-61); Albumin, Serum 3.4 g/dL (3.2-5.0); Alkaline Phosphatase 87 U/L (45-117); Anion Gap 2 (5-15); BUN 14 mg/dL (7-18); BUN/Creat Ratio 15.2 RATIO (10-20); Bilirubin, Direct 0.12 mg/dL (0.00-0.30); Calcium,Total 8.9 mg/dL (8.5-10.1); Chloride 108 mmol/L (98-107); Creatinine, Serum 0.92 mg/dL (0.70-1.30); EST Glomerular Filtration Rate 91 mL/min (>60); Est Glom Filt Rate - Afr Amer 110 mL/min (>60); Globulin 3.6 g/dL (2.2-4.2); Glucose 172 mg/dL (74-106); Potassium 4.4 mmol/L (3.5-5.1); Sodium Level 140 mmol/L (136-145)
[2020-03-30 09:47] LABS: Hepatitis B Surface Antibody Non-Reactive; Hepatitis B Surface Antigen Non-Reactive (Nonreactive)
[2020-03-30 10:25] LABS: Hemoglobin A1c 6.9 % (3.8-5.6)
[2020-04-01 05:07] LABS: Hepatitis C Ab <0.1 s/co ratio (0.0-0.9)
[2020-04-03 16:07] LABS: QNTFERON TB Mitogen Value > 10.00 IU/mL (.); QNTFERON TB Nil Value 0.03 IU/mL (.); QNTFERON TB1+ Ag Value 0.03 IU/mL (.); QNTFERON TB2+ Ag Value 0.02 IU/mL (.)
[2020-04-04 09:41] LABS: Hepatitis B Core Ab Total Negative (Negative); QNTIFERON TB Positive Criteria Negative (Negative)
== END ==
PROVIDERS: PCP Family Medicine; Referring Provider Physician Assistant; Visit Provider Physician Assistant
DX: L40.0 Psoriasis vulgaris (principal); R73.9 Hyperglycemia, unspecified; F43.21 Adjustment disorder with depressed mood; Z11.59 Encounter for screening for other viral diseases; Z79.899 Other long term (current) drug therapy
CPT/HCPCS: 36415; 80048; 80076; 83036; 85025; 86480; 86704; 86706; 86803; 86804; 87340

== ENCOUNTER 2020-06-21 09:34 | Outpatient (RCR) | payer OTHER, SELFPAY ==
[2020-06-21] MEDS: COVID-19 VACC, MRNA(PFIZER)/PF 30 MCG/0.3 ML SYRINGE IM (17:23)
[2020-07-12] MEDS: COVID-19 VACC, MRNA(PFIZER)/PF 30 MCG/0.3 ML SYRINGE IM (17:08)
== END 2020-06-21 23:59 ==
LOC: IMMUN 09:34
PROVIDERS: PCP Family Medicine; Referring Provider Family Medicine; Visit Provider Family Medicine
DX: Z23 Encounter for immunization (principal)
CPT/HCPCS: 0001A; 0002A; 91300

== ENCOUNTER → 2020-09-12 08:06 | Outpatient (CLI) | payer OTHER, SELFPAY ==
[2020-08-30 14:27] VITALS: BMI 34.1
[2020-09-12 09:10] LABS: AST(SGOT) 20 U/L (15-37); Alanine Aminotransfer ALT/SGPT 29 U/L (16-61); Albumin, Serum 3.5 g/dL (3.2-5.0); Alkaline Phosphatase 75 U/L (45-117); Bilirubin, Direct 0.14 mg/dL (0.00-0.30); Cholesterol 120 mg/dL (200); Globulin 3.4 g/dL (2.2-4.2); High Density Lipoprotein 31 mg/dL; Protein, Total 6.9 g/dL (6.4-8.2); Triglycerides 95 mg/dL; Very Low Density Lipoprotein 19 mg/dL (5-40)
== END ==
PROVIDERS: PCP Family Medicine; Referring Provider Internal Medicine Cardiovascular Disease; Visit Provider Internal Medicine Cardiovascular Disease
DX: E78.00 Pure hypercholesterolemia, unspecified (principal)
CPT/HCPCS: 36415; 80061; 80076

== ENCOUNTER → 2022-03-16 | Outpatient (CLI) | payer OTHER, SELFPAY ==
[2022-03-16 09:31] LABS: AST(SGOT) 19 U/L (15-37); Alanine Aminotransfer ALT/SGPT 29 U/L (16-61); Albumin, Serum 3.5 g/dL (3.2-5.0); Alkaline Phosphatase 62 U/L (45-117); Bilirubin, Direct 0.09 mg/dL (0.00-0.30); Cholesterol 143 mg/dL (200); Globulin 3.3 g/dL (2.2-4.2); High Density Lipoprotein 39 mg/dL; Protein, Total 6.8 g/dL (6.4-8.2); Triglycerides 103 mg/dL; Very Low Density Lipoprotein 21 mg/dL (5-40)
== END | disposition home or self-care (01) ==
LOC: LAB 08:12
PROVIDERS: PCP Family Medicine; Visit Provider Internal Medicine Cardiovascular Disease
DX: E78.5 Hyperlipidemia, unspecified (principal)
CPT/HCPCS: 36415; 80061; 80076

== ENCOUNTER → 2022-11-20 | Outpatient (CLI) | payer OTHER, SELFPAY ==
[2022-11-20 08:58] LABS: Absolute Lymphocyte Count 1.83 X10^3/uL (0.83-4.51); Absolute Neutrophil Count 2.6 X10^3/uL (2.0-7.7); Basophil# 0.03 X10^3/uL; Basophil% 0.6 % (0-1); Eosinophil# 0.13 X10^3/uL; Eosinophils% 2.6 % (0-5); Hematocrit 45.8 % (40-54); Hemoglobin 14.9 g/dL (13.0-16.5); Lymphocyte # 1.83 X10^3/ul (0.83-4.51); Mean Corp Hgb Conc 32.5 g/dL (32-36); Mean Corpuscular Hgb 28.7 pg (27.0-32.0); Mean Corpuscular Volume 88.1 fL (80-94); Mean Platelet Vol. 10.3 fl (6.2-12.0); Monocyte# 0.53 X10^3/uL; Monocyte% 10.4 % (0-10); NRBC Flagged by Analyzer 0 % (0-5); Neutrophil # 2.56 X10^3/uL (2.7-7.7); Neutrophil % 50.2 % (47-70); Platelet Count 172 K/mm3 (150-450); RBC Distribution Width CV 12.4 % (11.6-14.6); RBC Distribution Width SD 39.6 fl (35.1-43.9); White Blood Count 5.1 K/mm3 (4.4-11.0)
[2022-11-20 09:30] LABS: AST(SGOT) 19 U/L (15-37); Alanine Aminotransfer ALT/SGPT 26 U/L (16-61); Albumin, Serum 3.3 g/dL (3.2-5.0); Alkaline Phosphatase 70 U/L (45-117); Anion Gap 3 (5-15); BUN 16 mg/dL (7-18); BUN/Creat Ratio 15.1 RATIO (10-20); Bilirubin, Direct 0.15 mg/dL (0.00-0.30); Calcium,Total 8.5 mg/dL (8.5-10.1); Chloride 107 mmol/L (98-107); Cholesterol 134 mg/dL (200); Creatinine, Serum 1.06 mg/dL (0.70-1.30); EST Glomerular Filtration Rate 77 mL/min (>60); Est Glom Filt Rate - Afr Amer 93 mL/min (>60); Globulin 3.4 g/dL (2.2-4.2); Glucose 140 mg/dL (74-106); High Density Lipoprotein 31 mg/dL; Potassium 4.1 mmol/L (3.5-5.1); Protein, Total 6.7 g/dL (6.4-8.2); Sodium Level 139 mmol/L (136-145); Triglycerides 104 mg/dL; Very Low Density Lipoprotein 21 mg/dL (5-40)
== END | disposition home or self-care (01) ==
PROVIDERS: PCP Family Medicine; Referring Provider Physician Assistant Medical; Visit Provider Physician Assistant Medical
DX: L40.0 Psoriasis vulgaris (principal); Z79.899 Other long term (current) drug therapy
CPT/HCPCS: 36415; 80053; 80061; 82248; 85025

== ENCOUNTER → 2023-08-20 | Outpatient (CLI) | payer OTHER, SELFPAY ==
[2023-08-20 09:13] LABS: AST(SGOT) 21 U/L (15-37); Alanine Aminotransfer ALT/SGPT 30 U/L (16-61); Albumin, Serum 3.3 g/dL (3.2-5.0); Alkaline Phosphatase 75 U/L (45-117); Anion Gap 3 (5-15); BUN 14 mg/dL (7-18); BUN/Creat Ratio 14.3 RATIO (10-20); Bilirubin, Direct 0.15 mg/dL (0.00-0.30); Calcium,Total 8.5 mg/dL (8.5-10.1); Chloride 108 mmol/L (98-107); Cholesterol 129 mg/dL (200); Creatinine, Serum 0.98 mg/dL (0.70-1.30); EST Glomerular Filtration Rate 84 mL/min (>60); Est Glom Filt Rate - Afr Amer 101 mL/min (>60); Globulin 3.4 g/dL (2.2-4.2); Glucose 147 mg/dL (74-106); High Density Lipoprotein 29 mg/dL; Potassium 4.1 mmol/L (3.5-5.1); Protein, Total 6.7 g/dL (6.4-8.2); Sodium Level 139 mmol/L (136-145); Triglycerides 160 mg/dL; Very Low Density Lipoprotein 32 mg/dL (5-40)
== END | disposition home or self-care (01) ==
LOC: LAB 07:58
PROVIDERS: PCP Family Medicine; Referring Provider Physician Assistant Medical; Visit Provider Physician Assistant Medical
DX: E78.00 Pure hypercholesterolemia, unspecified (principal); Z95.1 Presence of aortocoronary bypass graft
CPT/HCPCS: 36415; 80053; 80061; 82248

== ENCOUNTER 2023-10-26 18:31 | Emergency (ER) | payer OTHER, SELFPAY ==
[2023-10-26 18:32] VITALS: BP 142/85; PULSE 80; RESP 18; TEMP 36.4; O2SAT 95; BMI 36.8
--- NOTE | 2023-10-26 18:45 | EDS_ITS ---
HPI History of Present Illness Chief Complaint: Allergic Reaction Informant: patient Onset/Context/Timing Onset: Yesterday Context: Gradual Onset Narrative Narrative: Patient presents secondary to allergic reaction. Patient states that he has a mild flare of diverticulitis and his primary care physician put him on Cipro and Flagyl , 2 days ago. Patient states he has had this medication before and thinks he may have had a mild reaction to it then. Yesterday he started breaking out a rash over his chest, neck, and axilla bilaterally. He denies throat tightness or shortness of breath. He called [facility] today who told to come to the emergency room. He does have a documented allergy to penicillins, but when I ask him about this he states it is a family history of reaction to penicillins. He does not believe he himself has ever had penicillins. [facility] Medical History Type 2 diabetes mellitus History of left heart catheterization (LHC) (~12/02/19) Essential hypertension History of DVT (deep vein thrombosis) Hypertension Psoriasis GERD (gastroesophageal reflux disease) Hyperlipidemia Pulmonary embolism and infarction, iatrogenic MAC (obstructive sleep apnea) Long-term use of high-risk medication Atherosclerotic heart disease of [place] coronary artery without angina pectoris Home Medications ?Medication ?Instructions ?Recorded ?Last Taken ?Type aspirin 325 mg tablet,delayed 325 mg PO QDAY 06/17/17 11/30/19 History release (Ecotrin) bupropion HCl 150 mg tablet,12 hr 150 mg PO QDAY 06/17/17 Unknown History sustained-release fluticasone propionate 50 1 spray intranasal QDAY PRN 06/17/17 Unknown History mcg/actuation nasal Allergies spray,suspension loratadine 10 mg tablet 10 mg PO QDAY 06/17/17 12/01/19 History calcipotriene-betamethasone 0.005 1 applic topical DAILY PRN 04/29/19 Unknown History %-0.064 % topical ointment psoriasis (Taclonex) metformin 500 mg tablet 500 mg PO DAILY 08/30/20 Unknown History sulfasalazine 500 mg tablet 0.5 g PO DAILY 03/21/22 Unknown History nitroglycerin 0.4 mg sublingual 0.4 mg sublingual Q5M PRN 07/24/23 Unknown Rx tablet Cardiac/Chest Pain #25 tabs ezetimibe 10 mg tablet (Zetia) 10 mg PO QDAY #90 tabs 07/12/23 Unknown Rx rosuvastatin 40 mg tablet 40 mg PO QDAY #90 tabs 07/12/23 Unknown Rx lisinopril 2.5 mg tablet 2.5 mg PO QDAY #90 tabs 08/05/23 Unknown Rx metoprolol succinate 25 mg 25 mg PO DAILY #90 tabs 08/05/23 Unknown Rx tablet,extended release 24 hr amoxicillin 875 mg-potassium 1 tab PO BID #14 tabs 10/26/23 Unknown Rx clavulanate 125 mg tablet Allergy/AdvReac Type Severity Reaction Status Date / Time heparin AdvReac Severe Induced Verified 10/26/23 18:32 thrombocytopenia Penicillins AdvReac Unknown Unknown Verified 10/26/23 18:32 Surgical History History of hernia repair History of thymectomy History of vasectomy Aortocoronary bypass status (~01/18/10) Social History Smoking Status: Never smoker alcohol intake: never ROS ROS ED Constitutional Constitutional ED: Denies chills or fever(s) Eyes Eyes: Denies discharge from eye(s) ENT ENT ED: Denies discharge from eye(s), rhinorrhea or sore throat Cardiovascular Cardiovascular: Denies chest pain or palpitations Respiratory/Chest Respiratory/Chest: Denies cough or dyspnea Gastrointestinal Gastrointestinal: Denies abdominal pain, nausea or vomiting Genitourinary Genitourinary ED: Denies dysuria Musculoskeletal Musculoskeletal: Denies back pain or extremity pain Integumentary Reports rash; Denies Abrasions Neurologic Neurologic: Denies headache(s) or weakness Psychiatric Psychiatric: Denies anxiety or depression Allergic/Immunologic Allergic/Immunologic ED: Denies lip swelling or urticaria EXAM Physical Exam Narrative Exam Narrative: Patient sitting in bedside chair. He is speaking full sentences and in no acute distress. Const Vital Signs: 10/26/23 18:32 Temperature 97.6 F L Temperature Source Temporal Pulse Rate 80 Respiratory Rate 18 Blood Pressure 142/85 H Blood Pressure Mean 104 Pulse Ox 95 Oxygen Delivery Method Room Air Positive well nourished and well developed General Appearance ED: well developed HEENT Reports moist mucous membranes Eyes EOMs intact bilaterally Chest Wall inspection of chest normal and palpation of chest normal Resp normal respiratory effort and clear to auscultation bilaterally Cardio regular rate and regular rhythm GI non-tender Palpation: soft Extremity normal to inspection Neuro oriented x3 and no sensory deficits noted Motor Exam: strength 5/5 throughout Skin Skin Narrative: Patient with an erythematous flat rash noted over the upper chest, neck, and bilateral axilla. No open wounds. MDM MDM MDM Narrative Medical decision making narrative: Patient given a dose of prednisone and Benadryl here. On repeat evaluation erythema may be slightly improved. No further progression of rash. He continues to have no shortness of breath or throat tightness. Patient states that his mother and uncle have had bad reactions with penicillin, but he does not know what that reaction was. They are both now. He thinks he may have had amoxicillin as an adult. We will give him Augmentin and he will closely monitor for any symptoms of reaction when he starts this tomorrow. He is to return immediately if he has any difficulty with the medication. Patient comfortable with the plan. Discharge Plan Triage Chief Complaint: Allergic Reaction ED Provider: Olga Mancilla Dx/Rx/DC Orders Clinical Impression: Allergic drug reaction Instructions: ED ADVERSE DRUG REACTION Allergic Prescriptions: New amoxicillin-pot clavulanate 875-125 mg tablet 1 tab PO BID Qty: 14 0RF No Action bupropion HCl 150 mg tablet extended release 12 hr 150 mg PO QDAY aspirin [Ecotrin] 325 mg tablet,delayed release (DR/EC) 325 mg PO QDAY fluticasone propionate 50 mcg/actuation spray,suspension 1 spray INTRANASAL QDAY PRN (Reason: Allergies) loratadine 10 mg tablet 10 mg PO QDAY calcipotriene-betamethasone [Taclonex] 0.005-0.064 % ointment 1 applic TOPICAL DAILY PRN (Reason: psoriasis) metformin 500 mg tablet 500 mg PO DAILY sulfasalazine 500 mg tablet 0.5 g PO DAILY Rx Instructions: give with food (meal/snack) nitroglycerin 0.4 mg tablet, sublingual 0.4 mg SUBLINGUAL Q5M PRN (Reason: Cardiac/Chest Pain) Qty: 25 3RF ezetimibe [Zetia] 10 mg tablet 10 mg PO QDAY Qty: 90 3RF rosuvastatin 40 mg tablet 40 mg PO QDAY Qty: 90 3RF metoprolol succinate 25 mg tablet extended release 24 hr 25 mg PO DAILY Qty: 90 3RF lisinopril 2.5 mg tablet 2.5 mg PO QDAY Qty: 90 3RF Primary Care Provider: Ole Alexandra Referrals: Ole Alexandra MD [Primary Care Provider] - 1-2 Weeks Print Language: Filipino Disposition Disposition: Home, Self Care
[2023-10-26] MEDS: DiphenhydrAMINE 25 MG Capsule 50 MG PO (19:00)
[2023-10-26] MEDS: predniSONE 20 MG Tablet 40 MG PO (19:01)
[2023-10-26 20:21] VITALS: BP 146/83; PULSE 73; RESP 18; TEMP 36.4; O2SAT 97
== END 2023-10-26 20:24 | disposition home or self-care (01) ==
PROVIDERS: Emergency Provider Emergency Medicine; PCP Family Medicine; Visit Provider Emergency Medicine
DX: T78.40XA Allergy, unspecified, initial encounter (principal); E11.9 Type 2 diabetes mellitus without complications; E78.5 Hyperlipidemia, unspecified; I25.10 Atherosclerotic heart disease of native coronary artery without angina pectoris; I10 Essential (primary) hypertension; K57.92 Diverticulitis of intestine, part unspecified, without perforation or abscess without bleeding; K21.9 Gastro-esophageal reflux disease without esophagitis; R21 Rash and other nonspecific skin eruption; X58.XXXA Exposure to other specified factors, initial encounter
CPT/HCPCS: 99282

== ENCOUNTER → 2024-03-17 | Outpatient (CLI) | payer OTHER, SELFPAY ==
[2024-03-17 11:22] LABS: AST(SGOT) 15 U/L (15-37); Alanine Aminotransfer ALT/SGPT 23 U/L (16-61); Albumin, Serum 3.2 g/dL (3.2-5.0); Alkaline Phosphatase 77 U/L (45-117); Bilirubin, Direct 0.14 mg/dL (0.00-0.30); Cholesterol 116 mg/dL (200); Globulin 3.3 g/dL (2.2-4.2); High Density Lipoprotein 27 mg/dL; Protein, Total 6.5 g/dL (6.4-8.2); Triglycerides 124 mg/dL; Very Low Density Lipoprotein 25 mg/dL (5-40)
== END | disposition home or self-care (01) ==
LOC: LAB 09:30
PROVIDERS: PCP Family Medicine; Referring Provider Internal Medicine Cardiovascular Disease; Visit Provider Internal Medicine Cardiovascular Disease
DX: I10 Essential (primary) hypertension (principal); Z95.1 Presence of aortocoronary bypass graft; E78.5 Hyperlipidemia, unspecified
CPT/HCPCS: 36415; 80061; 80076

== ENCOUNTER → 2025-04-07 | Outpatient (CLI) | payer BC, SELFPAY ==
[2025-04-07 11:05] LABS: AST(SGOT) 32 U/L (<=37); Alanine Aminotransfer ALT/SGPT 26 U/L (<=46); Albumin, Serum 4.0 g/dL (3.5-5.0); Alkaline Phosphatase 64 U/L (40-129); Bilirubin, Direct < 0.08 mg/dL (0.00-0.30); Cholesterol 120 mg/dL (<=200); Globulin 2.8 g/dL (2.2-4.2); Low Density Lipoprotein Calc. 75 mg/dL; Triglycerides 100 mg/dL; Very Low Density Lipoprotein 20 mg/dL (5-40); cholesterol:hdl ratio screen 4.62
== END | disposition home or self-care (01) ==
LOC: LAB 09:18
PROVIDERS: PCP Family Medicine; Referring Provider Internal Medicine Cardiovascular Disease; Visit Provider Internal Medicine Cardiovascular Disease
DX: E78.00 Pure hypercholesterolemia, unspecified (principal)
CPT/HCPCS: 36415; 80061; 80076